=== PATIENT | male | born 1955 | race African-American/Black ===

== ENCOUNTER 2017-09-09 01:47 | Inpatient (IN) ==
[2017-09-09] MEDS ORDERED: ACETAMINOPHEN 325 MG TABLET PO PRN (02:55)
[2017-09-09] MEDS ORDERED: DOCUSATE SODIUM 100 MG CAPSULE PO PRN (02:55)
[2017-09-09] MEDS ORDERED: ALBUTEROL SULFATE 2.5 MG/3 ML NEBULIZER NEB PRN (02:55)
[2017-09-09] MEDS ORDERED: ONDANSETRON 4 MG/2 ML VIAL IV PRN (02:55)
[2017-09-09] MEDS ORDERED: NALOXONE HCL 0.4 MG/ML VIAL IV PRN (02:55)
--- NOTE | 2017-09-09 03:24 | Internal Med History&Physical ---
Medical - H&P: HPI Patient information: Note initiated : 09/09/17 at 3:17 am Patient: Yony Dangelo 62 y/o M admitted on 09/09/17 for hyperkalemia. History of present illness: Mr. Dangelo is a 62 year old man with end-stage renal disease. He reportedly missed his dialysis treatment yesterday, as he did not feel well enough to go. He developed abrupt onset of shortness of breath when he got up to use the restroom earlier this evening. He presented to [facility] emergency room. He was found to be severely hyperkalemic. Nephrology recommended that the patient be transferred here and have stat hemodialysis. Patient was given IV calcium chloride, IV sodium bicarb, IV D50, 10 units of IV insulin, IV Zofran at [facility]. The patient reports he was not feeling very well yesterday morning, and was just generally a little nauseated had a mild headache, felt somewhat weak. He had noticed his feet and lower leg swelling more than usual over the last couple of days. Because he did not feel well, he decided to skip dialysis. He also says that he felt like his glands in his neck might of been a little bit swollen. Over the course of yesterday, he did note a couple of episodes of feeling mildly short of breath. Then last night he awakened with acute onset of severe shortness of breath. He presented to [facility] emergency room, as noted above. Otherwise, he denies recent fever or chills, headaches or dizziness, new eye or ear symptoms, sore throat or cough. He denies chest pain or palpitations. He has had slight nausea but no vomiting. He says he did have a little bit of crampy abdominal pain after taking a laxative, but otherwise no diarrhea or constipation. He says he makes minimal urine, and that has not changed. He was diagnosed with a pulmonary embolism in the spring of this year, and started on Coumadin. He then fell and hit his head in the bathroom, and developed a subdural hematoma. Coumadin was held for a few weeks, and then resumed. Past medical history: End-stage renal disease, on dialysis DVT Hypertension Carotid artery disease Seizure disorder? Osteoporosis? History of subdural hematoma Pericardial effusion Past surgical history: AV fistula, carotid artery stents, splenectomy Medications: (Unconfirmed) Protonix 40 mg daily Aspirin 81 mg every morning Coreg 12.5 mg, 2 tabs twice daily Dilaudid 4 mg every 4 hours as needed Warfarin 5 mg nightly (Discontinued: Lovenox 80 mg subcu daily) Dilaudid 4 mg every 4 hours as needed B complex/Nephro-Trina 1 every morning Cinacalcet 90 mg every morning Renvela 800 mg 3 times daily Keppra 500 mg p.o. twice daily Prolia 60 mg subcu every 6 months Multitak 200 mg p.o. twice daily (Amlodipine?, Clonidine?) Allergies: Iodine causes itching Lisinopril causes tongue swelling Methadone causes rash and itching Family history: Mother had breast cancer, Sister had a stroke at age 21 and history of lupus, and also had ovarian cancer..Father had a pacemaker at age 95 , and at age 101. Social history: The patient says he smoked for about 30 years, and quit around age 57. He does not use alcohol or drugs. He currently lives with a friend. He says most of his family live in [place]. Medical - H&P: Meds Home Medications Medication Instructions Recorded Confirmed Type Carvedilol [Coreg] 12.5 mg PO BIDCC 04/11/17 04/11/17 History Ondansetron HCl [Zofran ODT] 4 mg SL Q4-6HP PRN #14 tablet 04/11/17 Rx amLODIPine [Norvasc] 10 mg PO DAILY 04/11/17 04/11/17 History cloNIDine HCL [Catapres] 0.2 mg PO BID 04/11/17 04/11/17 History cloNIDine [Catapres-Tts 1] 1 patch TOPICAL WEEKLY 04/11/17 04/11/17 History HYDROmorphone HCL [Dilaudid] 4 mg PO QIDP PRN 09/09/17 09/09/17 History HYDROmorphone HCL [Hydromorphone 2 mg PO BIDP PRN 09/09/17 09/09/17 History HCl] Multaq 400 mg PO BID 09/09/17 09/09/17 History Allergies Allergy/AdvReac Type Severity Reaction Status Date / Time Methadone Allergy Unknown Verified 10/04/15 15:38 Medical - H&P: Exam - Constitutional Vitals: Temp Resp BP Pulse Ox 97.4 F 18 187/89 100 09/09/17 02:54 09/09/17 02:54 09/09/17 02:54 09/09/17 02:54 On exam, he is a well-developed well-nourished -[place] man, in no acute distress. Head: Normocephalic, atraumatic. eyes: PERRLA, EOMI, anicteric. Ears: TMs and canals are clear. Pharynx: Pharynx is clear. Teeth are in good repair. Neck: He appears to have soft bilateral carotid bruits. Jugular veins appear distended to the jaw. No lymphadenopathy or thyromegaly is noted. Neck appears supple. Cardiac exam: Shows regular rate and rhythm with normal S1 and S2. He has a 2/ 6 systolic ejection murmur heard loudest along the left lower sternal border. No rubs or gallops are noted. Lungs: He has soft crackles noted about one third up from the bases, posteriorly. No definite wheezes or rhonchi are noted. He has no accessory muscle use. Next line abdomen: Soft and nontender, without obvious masses. Bowel sounds are normoactive. Extremities: He has about 2+ pitting edema to about mid garsia bilaterally. Pulses are intact. He has fistulas with thrills in both arms. Neurologic: Patient is alert and oriented, calm and cooperative. He seems to lack insight into his medical condition. Motor exam is grossly nonfocal. Medical - H&P: Reslt - Labs CBC & Chem 7: 09/09/17 11:20 09/09/17 07:09 Labs: September 09: CBC: White blood cell count 6000, hemoglobin 14, hematocrit 46, platelets 263, 000. Differential shows 700 lymphocytes. Pro time is 18, INR 1.5 Chemistry panel: Sodium 141, potassium 3.6, chloride 95, CO2 28, anion gap 18, BUN 58, creatinine 6.0, glucose 61 Alkaline phosphatase is 125 Nasal MRSA screen is negative. September 09: Labs from [facility]: Chemistry panel: Sodium 135, potassium 7.9, chloride 88, bicarb 21, anion gap 26 , BUN 138, creatinine 11.7, glucose 82 Calcium 10.1 ProBNP 44,321 next CBC: White blood cell count 5000, hemoglobin 14, hematocrit 46, MCV 90, RDW 23, platelets 244,000. Differential: 12% lymphocytes, 17% monocytes EKG: Shows normal sinus rhythm at a rate of 68, first-degree AV block, left atrial enlargement, left axis deviation, likely septal infarct, slightly peaked T waves inferiorly and laterally Medical - H&P: A/P (1) End stage renal disease with hypertension Current visit: Yes Status: Chronic (2) DVT (deep venous thrombosis) Current visit: Yes Status: Chronic (3) Carotid artery disease Current visit: No Status: Chronic (4) Seizure disorder Current visit: No Status: Chronic (5) Osteoporosis Current visit: No Status: Chronic (6) History of subdural hematoma Current visit: No Status: Chronic - Narrative A/P Narrative: #1. Cardiopulmonary. This patient with end-stage renal disease missed his dialysis treatment yesterday. He presents today with acute shortness of breath, likely due to volume overload. -Patient was admitted around 3 AM, and had urgent dialysis done. This morning he is feeling much less short of breath, though he still has an abnormal lung exam. He admits that he was eating salty food a day or 2 ago. He has not been weighing every day, and is encouraged to do this. I touch base with Dr. Pettit, and he will see him again this afternoon, and then we will decide whether the patient should be discharged, or will need more fluid management. -Check follow-up EKG and troponin. 2. Renal. End-stage renal disease. Dialysis. Severe electrolyte abnormalities, including hyperkalemia, uremia. Dialysis. 3. CODE STATUS: Full code. 4. DVT prophylaxis: Warfarin. Recent history of DVT ? : Coumadin management per pharmacy. 5. Vascular disease-carotid artery disease. #6. Pulmonary. Patient reportedly was diagnosed with pulmonary embolism earlier this year, and is currently maintained on Coumadin. We will continue the Coumadin, and have him follow-up with his primary care doctor to decide how long he should stay on that. Approximately 60 minutes was spent, reviewing the patient's records from [facility], interviewing and examining him, touching base with staff and Dr. Pettit , and writing orders.
[2017-09-09] MEDS: PANTOPRAZOLE 40 MG VIAL IV SCH (07:16)
[2017-09-09 08:21] LABS: ALT/SGPT 18 U/l (0-40); Albumin 3.7 gm/dL (3.2-5.2); Albumin/Globulin Ratio 0.9 (1.0-2.3); Alkaline Phosphatase 125 U/L (39-117); Blood Urea Nitrogen 58 mg/dl (6-20)
[2017-09-09] MEDS: ASPIRIN 81 MG TAB.CHEW PO SCH (08:43)
[2017-09-09] MEDS: VITAMIN B COMPLEX 1 CAPSULE PO SCH (08:44)
[2017-09-09] MEDS: HEPARIN 5,000 UNIT/ML VIAL SQ SCH ×2 (08:44→20:54)
[2017-09-09] MEDS: SEVELAMER 800 MG TABLET PO SCH ×3 (08:44→17:56)
[2017-09-09] MEDS: CINACALCET 30 MG TABLET PO SCH (08:44)
[2017-09-09] MEDS: levETIRAcetam 500 MG TABLET PO SCH ×2 (08:44→20:54)
[2017-09-09] MEDS ORDERED: METOPROLOL TARTRATE 5 MG/5 ML VIAL IV ONE (10:48)
[2017-09-09] MEDS ORDERED: HYDROMORPHONE HCL 4 MG PO PRN (10:51)
[2017-09-09] MEDS ORDERED: METOPROLOL TARTRATE 5 MG/5 ML VIAL IV PRN (10:54)
[2017-09-09] MEDS: CARVEDILOL 12.5 MG TABLET PO SCH ×3 (11:14→17:59)
[2017-09-09 11:53] LABS: Basophils # (Auto) 0 K/mcL (0.0-0.3); Basophils % (Auto) 0.8 % (0.0-2.0); Eosinophils # (Auto) 0.1 K/mcL (0.0-0.7); Eosinophils % (Auto) 1.2 % (0.0-7.0); Granulocytes % (Auto) 72.8 % (38.0-78.0); Lymphocytes # (Auto) 0.7 K/mcL (1.5-4.8); Lymphocytes % (Auto) 11.6 % (15.5-49.0); Mean Cell Volume 90.2 fL (80.0-100.0); Mean Corpuscular Hemoglobin 28.8 pg (26.0-34.0); Monocytes # (Auto) 0.8 K/mcL (0.1-0.9); Monocytes % (Auto) 13.6 % (1.0-12.0); Platelet Count 263 K/mcL (140-440); RBC 5.11 M/mcL (4.50-5.90); Red Cell Distribution Width 23.3 % (11.5-14.5)
--- NOTE | 2017-09-09 15:10 | Consultation ---
DATE OF CONSULTATION: 09/09/2017 REFERRING PHYSICIAN: Christine Lorenzo M.D. REASON FOR CONSULTATION: Hyperkalemia. HISTORY OF PRESENT ILLNESS: The patient is a 62-year-old gentleman with past medical history significant for end-stage renal disease on hemodialysis. He dialyzes three days a week on Mondays, Wednesdays, and Fridays. He missed his dialysis treatment on Thursday because he did not feel like going. He came into the emergency room at [facility] and in the process of evaluation was found to have a potassium of 7.8. He was given IV calcium, bicarbonate, D50 and 10 units of insulin. Because of the 7.8 potassium, he was transferred to [facility] to initiate hemodialysis. He feels tired and he is short of breath. His shortness of breath started somewhat abruptly. He has been otherwise stable. PAST MEDICAL HISTORY: Significant for: 1. End-stage renal disease on hemodialysis. 2. History of recent DVT in his neck veins. 3. Hypertension. 4. Carotid artery disease. 5. Seizures. 6. Secondary hyperparathyroidism. 7. History of subdural hematoma. 8. History pericardial effusion. PAST SURGICAL HISTORY: 1. AV fistula surgeries. 2. Carotid artery stents. 3. Subdural hematoma extraction. MEDICATIONS ON ADMISSION: 1. Protonix 40 mg daily. 2. Aspirin 81 mg daily. 3. Carvedilol 12.5 mg two tablets twice daily. 4. Dilaudid 4 mg as needed. 5. Coumadin 5 mg daily. 6. Lovenox 80 mg subq daily. 7. ?? one tablet once daily. 8. Sensipar 90 mg daily. 9. Renvela 800 mg three tablets daily. 10. Keppra 500 mg twice daily. 11. Prolia 60 mg subq every 6 months. 12. Multaq 200 mg p.o. twice daily. ALLERGIES: 1. IODINE which causes itching. 2. LISINOPRIL causes tongue swelling. 3. METHADONE causes rash and itching. FAMILY HISTORY: Mother had breast cancer, ovarian cancer. Sister had a stroke at the age of 21 and a history of lupus. Father had a pacemaker at the age of 95. His father recently. SOCIAL HISTORY: He is a previous smoker, quit in 2013. No history of alcohol use. REVIEW OF SYSTEMS: Ten systems were reviewed and are as indicated in history of present illness. PHYSICAL EXAMINATION: GENERAL: Alert, oriented x3. He is not in any distress. VITAL SIGNS: Blood pressure is 187/89 with a pulse rate of 90, pulse oximetry of 100%, respiratory rate of 18, temperature 97.4. HEENT: NC/AT. PERRLA. EOMI. No pallor, no cyanosis, and no icterus. Fundus examination is not performed. External ear and tympanic membrane appears normal. Oral cavity appears normal with normal mucosa. NECK: Supple. No jugular venous distention. No lymphadenopathy. No thyromegaly. No carotid bruits. LUNGS: Decreased air entry bilaterally. No rales or rhonchi heard. CARDIAC: S1 and S2 heard. No S3, S4. No murmurs. No rubs. ABDOMEN: Soft, nontender. No organomegaly. Positive bowel sounds. No mass. No rebound. EXTREMITIES: Did not show any evidence of edema. LABORATORY DATA: From [facility] showed a potassium of 7.8. ASSESSMENT AND PLAN: 1. Hyperkalemia secondary to missed dialysis. He was started on hemodialysis last night and received a zero potassium bath for one hour and then subsequently one potassium bath. His potassium this morning is adequate at 3.6. 2. Hypertension because of the volume excess. He has not been very compliant with dialysis. 3. Anticoagulation. His INR is 1.5. 4. I will continue to follow him in the hospitalization. Loi Job ID: [id number] Doc ID: [id number] Mason AMAYA
[2017-09-09] MEDS ORDERED: CARVEDILOL 12.5 MG TABLET PO SCH (17:30)
--- NOTE | 2017-09-09 17:53 | Cat Scan Report ---
CLINICAL INFORMATION: COMPARISON: 01/02/2017 TECHNIQUE: 2.5 mm helical slices were obtained in the skull base to vertex. Following reconstruction, axial reformatted images were reviewed at bone and parenchymal windows. FINDINGS: The ventricles, sulci, fissures, and cisterns are symmetrically enlarged compatible with mild atrophy. Prior right frontal craniotomy changes are noted evacuated right subdural hematoma. Is no evidence of recurrent or residual subdural hematoma. No extra-axial fluid collection or mass appreciated. Minimal chronic ischemic changes in the deep cerebral white matter. Is no intracerebral hemorrhage, mass effect or edema. There is a potential poorly visualized similar mass in the hypothalamic region. 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 IMPRESSION: No hemorrhage, edema or other acute intracerebral finding Mild atrophy and chronic ischemic changes in the cerebral white matter. Right frontal craniotomy changes to evacuate a right frontal subdural hematoma. 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 Suggest brain MRI with gadolinium for further evaluation Interpreted and Authenticated by: Randell Hercules 09/09/17
[2017-09-09] MEDS: HYDROmorphone 2 MG TABLET PO PRN ×2 (17:55→21:01)
[2017-09-09] MEDS: WARFARIN 5 MG TABLET PO SCH (17:55)
[2017-09-09] MEDS: DRONEDARONE 400 MG PO SCH (20:55)
[2017-09-10] MEDS: DRONEDARONE 400 MG PO SCH ×2 (07:18→13:47)
[2017-09-10 07:30] LABS: Basophils # (Auto) 0 K/mcL (0.0-0.3); Basophils % (Auto) 0 % (0.0-2.0); Eosinophils # (Auto) 0.1 K/mcL (0.0-0.7); Eosinophils % (Auto) 1.2 % (0.0-7.0); Granulocytes % (Auto) 69.5 % (38.0-78.0); Lymphocytes # (Auto) 0.8 K/mcL (1.5-4.8); Lymphocytes % (Auto) 14.7 % (15.5-49.0); Mean Cell Volume 91.6 fL (80.0-100.0); Mean Corpuscular HGB Conc 32.1 g/dL (31.0-36.0); Mean Corpuscular Hemoglobin 29.4 pg (26.0-34.0); Monocytes # (Auto) 0.8 K/mcL (0.1-0.9); Monocytes % (Auto) 14.6 % (1.0-12.0); Platelet Count 241 K/mcL (140-440); RBC 4.39 M/mcL (4.50-5.90); Red Cell Distribution Width 22.8 % (11.5-14.5)
[2017-09-10] MEDS: SEVELAMER 800 MG TABLET PO SCH ×2 (07:30→12:03)
[2017-09-10] MEDS: PANTOPRAZOLE 40 MG VIAL IV SCH (07:30)
[2017-09-10] MEDS: HYDROmorphone 2 MG TABLET PO PRN ×2 (07:49→13:47)
[2017-09-10 08:33] LABS: ALT/SGPT 16 U/l (0-40); Albumin/Globulin Ratio 0.8 (1.0-2.3); Alkaline Phosphatase 103 U/L (39-117); Blood Urea Nitrogen 86 mg/dl (6-20)
[2017-09-10] MEDS ORDERED: METOPROLOL TARTRATE 5 MG/5 ML VIAL IV ONE (08:36)
[2017-09-10] MEDS ORDERED: FLU VACC QS2017-18 36MOS UP/PF 60 MCG/0.5 ML SYRINGE IM ONE (10:00)
--- NOTE | 2017-09-10 10:21 | Discharge Summary ---
Medical - DS: Prov Patient information: Note initiated : 09/10/17 at 10:21 am Service Date, if different from initiated Date: [] Patient: Yony Dangelo 62 y/o M admitted on 09/09/17 for Hyperkalemia. Chief Complaint: [] Date of admission: 09/09/17 02:46 Discharge date: 09/10/17 Primary care physician: Mason Pettit, boat designer [facility]. PCP. Admitting clinician: Christine Rubio Consults: Dr. Pettit, nephrology. Attending physician on discharge: Christine Rubio Medical - DS: Meds - Discharge Medications Prescriptions: Gabapentin [Neurontin] 100 mg PO HS #30 cap Active and Home Medications: Discharge medications: Gabapentin 100 mg p.o. nightly, for foot neuropathy pain Aspirin 81 mg daily Coreg 12.5 mg twice daily Cinacalcet 90 mg daily Dilaudid 2 mg and 4 mg p.o. every 4 hours as needed Keppra 500 mg p.o. twice daily Multaq 400 mg p.o. twice daily Zofran ODT 4 mg sublingual every 4 hours as needed Protonix 40 mg every morning Renvela 800 mg p.o. 3 times daily with meals Nephro-Trina 1 tab daily Warfarin 5 mg nightly Tylenol 650 mg every 6 hours as needed Coumadin level is low here, with INR of only 1.5. Please take 10 mg of Coumadin tonight, and recheck pro time tomorrow, with results to Dr. Pettit. Previous home Medications: Carvedilol [Coreg] 12.5 mg PO BIDCC 04/11/17 [History Confirmed 09/10/17 Last Taken Unknown] Ondansetron HCl [Zofran ODT] 4 mg SL Q4-6HP PRN #14 tablet 04/11/17 [Rx Confirmed 09/10/17 Last Taken Unknown] HYDROmorphone HCL [Hydromorphone HCl] 2 mg PO BIDP PRN 09/09/17 [History Confirmed 09/09/17 Last Taken Unknown] Multaq 400 mg PO BID 09/09/17 [History Confirmed 09/09/17 Last Taken Unknown] Aspirin [Luisa Chewable Aspirin] 81 mg PO DAILY 09/10/17 [History Confirmed 11/15 Last Taken Unknown] Cinacalcet HCl [Sensipar] 90 mg PO DAILY 09/10/17 [History Confirmed 09/10/17 Last Taken Unknown] HYDROmorphone HCL [Dilaudid] 4 mg PO Q4HP PRN 09/10/17 [History Confirmed Last Taken Unknown] Pantoprazole [Protonix] 40 mg PO QAMAC 09/10/17 [History Confirmed 09/10/17 Last Taken Unknown] Sevelamer [Renvela] 800 mg PO TIDCC 09/10/17 [History Confirmed 09/10/17 Last Taken Unknown] Vit B Cmplx 3/FA/Vit C/Biotin [Nephro-Trina Rx Tablet] 1 each PO DAILY 09/10/17 [ History Confirmed 09/10/17 Last Taken Unknown] Warfarin [Coumadin] 5 mg PO HS 09/10/17 [History Confirmed 09/10/17 Last Taken Unknown] levETIRAcetam [Keppra] 500 mg PO BID 09/10/17 [History Confirmed 09/10/17 Last Taken Unknown] Medical - DS: Hosp Hospital course: Mr. Dangelo is a 62 year old M September 09, 2017: History of present illness: Mr. Dangelo is a 62 year old man with end-stage renal disease. He reportedly missed his dialysis treatment yesterday, as he did not feel well enough to go. He developed abrupt onset of shortness of breath when he got up to use the restroom earlier this evening. He presented to [facility] emergency room. He was found to be severely hyperkalemic. Nephrology recommended that the patient be transferred here and have stat hemodialysis. Patient was given IV calcium chloride, IV sodium bicarb, IV D50, 10 units of IV insulin, IV Zofran at [facility]. The patient reports he was not feeling very well yesterday morning, and was just generally a little nauseated had a mild headache, felt somewhat weak. He had noticed his feet and lower leg swelling more than usual over the last couple of days. Because he did not feel well, he decided to skip dialysis. He also says that he felt like his glands in his neck might of been a little bit swollen. Over the course of yesterday, he did note a couple of episodes of feeling mildly short of breath. Then last night he awakened with acute onset of severe shortness of breath. He presented to [facility] emergency room, as noted above. Otherwise, he denies recent fever or chills, headaches or dizziness, new eye or ear symptoms, sore throat or cough. He denies chest pain or palpitations. He has had slight nausea but no vomiting. He says he did have a little bit of crampy abdominal pain after taking a laxative, but otherwise no diarrhea or constipation. He says he makes minimal urine, and that has not changed. He was diagnosed with a pulmonary embolism in the spring of this year, and started on Coumadin. He then fell and hit his head in the bathroom, and developed a subdural hematoma. Coumadin was held for a few weeks, and then resumed. September 10: Hospital course: Patient was admitted to the ICU, and received acute dialysis for acute and severe CHF with hypoxia/respiratory failure. He felt quite a bit better yesterday morning after dialysis, but lungs still sounded wet, and he still had peripheral edema. His heart rates also were a bit variable, dropping into the 60s and then jumping up to the 130s. He was monitored on telemetry overnight. He is undergoing repeat dialysis this morning, to pull more fluid off, and then will likely be stable for discharge. Patient has severe hyperkalemia on admission, which resolved yesterday. Potassium was back up this morning, but should be better after dialysis. Today, he is complaining of a tingling and burning pain in his feet. Otherwise, he denies fever chills, chest pain or palpitations, shortness of breath, GI or problems On exam, he is awake and alert, in no acute distress. Temperature 97.8 heart rate varies from 68-130, currently 110. Blood pressure 137-150/93-100. O2 saturation 95% on room air. Neck is supple. Cardiac exam shows regular rate and rhythm. Lungs: He still has some crackles at the bases, but the remainder of the lung cordova are clear. Abdomen is soft and nontender. Extremities: He still has significant, at least 2+, pitting edema in the left lower extremity. Edema of the right lower extremity has mostly resolved Neurologic exam: Is grossly nonfocal. Assessment and plan: #1. Cardiopulmonary. This patient with end-stage renal disease missed his dialysis treatment yesterday. He presents today with acute shortness of breath, likely due to volume overload. The patient was admitted for urgent dialysis. He is much improved after dialysis. It would appear that he is not entirely compliant with a low-salt diet, nor with his dialysis schedule. He will have repeat dialysis today, and afterwards will likely be discharged home. 2. Renal. End-stage renal disease. Dialysis. Severe electrolyte abnormalities, including hyperkalemia, uremia. Dialysis. Management per Dr. Pettit. 3. CODE STATUS: Full code. 4. DVT prophylaxis: Warfarin. 5. Vascular disease-carotid artery disease. #6. Pulmonary. Patient reportedly was diagnosed with pulmonary embolism earlier this year, and is currently maintained on Coumadin. INR is still subtherapeutic today. Coumadin dose needs to be increased. I will give him a dose of Lovenox today to protect him until Coumadin is therapeutic. -Recheck INR in the morning. Patient will report to the anticoagulation clinic tomorrow, with results forwarded to Dr. Cruz. 7. Neurologic. Patient complains of foot discomfort, and symptoms are consistent with neuropathy. I touched base with Dr. Pettit, and we will start him on gabapentin 100 mg p.o. nightly. -Dr. Pettit ordered a head CT. There is no evidence of recurrent subdural hematoma. 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 Radiology suggests follow-up brain MRI. Dr. Pettit says he will follow-up on this. Discharge diagnosis: Acute CHF, volume overload, due to missed dialysis. - Time Spent with Patient Total time spent providing and/or coordinating discharge services: Greater than 30 minutes Medical - DS: Exam - Constitutional Vitals: Vital Signs Temp Pulse Pulse Resp BP BP Pulse Ox 09/10/17 07:52 97.8 F 120 H 19 137/79 95 09/10/17 07:12 92 09/10/17 04:01 124/75 09/10/17 00:19 138/71 09/09/17 23:01 142/82 09/09/17 22:01 157/80 09/09/17 21:01 69 159/83 91 09/09/17 20:53 159/79 09/09/17 20:00 97.0 F 68 18 159/79 90 09/09/17 17:01 167/83 09/09/17 16:01 167/92 09/09/17 16:00 98.4 F 70 20 167/92 95 09/09/17 15:01 173/89 09/09/17 14:00 184/95 09/09/17 13:31 76 16 155/78 09/09/17 13:14 155/78 09/09/17 13:00 207/119 09/09/17 12:00 98.6 F 130 H 20 189/124 189/124 94 09/09/17 11:33 178/92 09/09/17 11:00 185/83 09/09/17 10:53 164/86 Intake and Output 09/09/17 09/10/17 09/10/17 21:59 05:59 13:59 Intake Total 440 / 440 240 / 240 Balance 440 / 440 240 / 240 Intake: Oral 440 / 440 240 / 240 Other: Meal Dinner Percent of Meal Consumed 100% Feeding Ability Assist with Tray Set Up Weight 176 lb 4.8 oz Medical - DS: Data Labs on day of discharge: Labs from last 24 hours 09/10/17 09/10/17 09/10/17 04:15 04:15 04:15 WBC 5.5 RBC 4.39 L Hgb 12.9 L Hct 40.2 L MCV 91.6 MCH 29.4 MCHC 32.1 RDW 22.8 H Plt Count 241 MPV 9.1 Gran % 69.5 Lymph % (Auto) 14.7 L [place] % (Auto) 14.6 H Eos % (Auto) 1.2 Baso % (Auto) 0 Gran # 3.8 Lymph # (Auto) 0.8 L [place] # (Auto) 0.8 Eos # (Auto) 0.1 Baso # (Auto) 0 Differential Comment PT 18.6 H INR 1.5 H Sodium 140 Potassium 5.6 H Chloride 92 L Carbon Dioxide 27 Anion Gap 21.0 H BUN 86 H Creatinine 9.7 H* GFR Calculation 5 Glucose 86 Calcium 8.6 Total Bilirubin 0.4 AST 15 ALT 16 Alkaline Phosphatase 103 Total Protein 6.8 Albumin 3.0 L Globulin 3.8 H Albumin/Globulin Ratio 0.8 L 09/09/17 11:20 WBC 6.0 RBC 5.11 Hgb 14.7 Hct 46.1 MCV 90.2 MCH 28.8 MCHC 32.0 RDW 23.3 H Plt Count 263 MPV 9.1 Gran % 72.8 Lymph % (Auto) 11.6 L [place] % (Auto) 13.6 H Eos % (Auto) 1.2 Baso % (Auto) 0.8 Gran # 4.4 Lymph # (Auto) 0.7 L [place] # (Auto) 0.8 Eos # (Auto) 0.1 Baso # (Auto) 0 Differential Comment Few nrbcs on scan PT INR Sodium Potassium Chloride Carbon Dioxide Anion Gap BUN Creatinine GFR Calculation Glucose Calcium Total Bilirubin AST ALT Alkaline Phosphatase Total Protein Albumin Globulin Albumin/Globulin Ratio September 09: Head CT: 10 mm mass in the region of the hypothalamus/[facility]. Suggest brain MRI with gadolinium for further evaluation. Evidence of previous right frontal craniotomy to evacuate right frontal subdural. No evidence of recurrent subdural. CBC: White blood cell count 6000, hemoglobin 14, hematocrit 46, platelets 263, 000. Differential shows 700 lymphocytes. Pro time is 18, INR 1.5 Chemistry panel: Sodium 141, potassium 3.6, chloride 95, CO2 28, anion gap 18, BUN 58, creatinine 6.0, glucose 61 Alkaline phosphatase is 125 Nasal MRSA screen is negative. September 09: Labs from [facility]: Chemistry panel: Sodium 135, potassium 7.9, chloride 88, bicarb 21, anion gap 26 , BUN 138, creatinine 11.7, glucose 82 Calcium 10.1 ProBNP 44,321 CBC: White blood cell count 5000, hemoglobin 14, hematocrit 46, MCV 90, RDW 23, platelets 244,000. Differential: 12% lymphocytes, 17% monocytes EKG: Shows normal sinus rhythm at a rate of 68, first-degree AV block, left atrial enlargement, left axis deviation, likely septal infarct, slightly peaked T waves inferiorly and laterally Medical - DS: A/P - Patient/Caregiver Discharge Instructions Activity: increase activity as tolerated Diet: Renal Additional Instructions: 1. Heart failure, acute volume overload. -You ended up with fluid in your lungs because you missed dialysis, and also probably because he had too much salt in your diet. Please weigh yourself daily and let your doctor know if you gain more than a pound or 2 in 1 day. Please do not miss any more dialysis appointments. 2. Your Coumadin level was low here. -Please take 10 mg of Coumadin tonight, instead of 5 mg. -Please recheck your pro time/INR tomorrow, with results to Dr. Pettit or Fara Cruz. 3. You are experiencing foot pain, which we think is a neuropathy. -Dr. Pettit suggested we try gabapentin 100 mg at bedtime. 4. You had a follow-up brain scan. This does not show any more bleeding. -However, there is a small spot deep in your brain, which might require further evaluation. You can follow-up with Dr. Pettit for this or Dr. Cruz. Discharge medications: Gabapentin 100 mg p.o. nightly, for foot neuropathy pain Aspirin 81 mg daily Coreg 12.5 mg twice daily Cinacalcet 90 mg daily Dilaudid 2 mg and 4 mg p.o. every 4 hours as needed Keppra 500 mg p.o. twice daily Multaq 400 mg p.o. twice daily if someone did not bring you this this morning, please take this as soon as you get home. Zofran ODT 4 mg sublingual every 4 hours as needed Protonix 40 mg every morning Renvela 800 mg p.o. 3 times daily with meals Nephro-Trina 1 tab daily Warfarin 5 mg nightly Tylenol 650 mg every 6 hours as needed Coumadin level is low here, with INR of only 1.5. Please take 10 mg of Coumadin tonight, and recheck pro time tomorrow, with results to Dr. Pettit. Prescriptions: Gabapentin [Neurontin] 100 mg PO HS #30 cap Other Amb Orders: Prothrombin Time INR Time Frame: 1 Day, Location: Determined By Patient - Problem Maintenance (1) End stage renal disease with hypertension Status: Chronic (2) DVT (deep venous thrombosis) Status: Chronic (3) Carotid artery disease Status: Chronic (4) Seizure disorder Status: Chronic (5) Osteoporosis Status: Chronic (6) History of subdural hematoma Status: Chronic - Follow up Plan Follow up with: Erika Cruz ARNP [Nurse Practitioner] - 09/18/17 2:30 pm Disposition: Home, Self-Care Prognosis: Good Rehab Potential: Good Overall status at discharge: patient is progressing back to baseline Medical - DS: Qual - VTE Deep Vein Thrombosis/Pulmonary Embolism Present on Admission: No
[2017-09-10] MEDS ORDERED: ENOXAPARIN 80 MG/0.8 ML SYRINGE SQ ONE (10:58)
[2017-09-10] MEDS: HEPARIN 5,000 UNIT/ML VIAL SQ SCH (13:46)
[2017-09-10] MEDS: CARVEDILOL 12.5 MG TABLET PO SCH (13:47)
[2017-09-10] MEDS: WARFARIN 5 MG TABLET PO SCH (13:47)
[2017-09-10] MEDS: ASPIRIN 81 MG TAB.CHEW PO SCH (13:47)
[2017-09-10] MEDS: CINACALCET 30 MG TABLET PO SCH (14:03)
[2017-09-10] MEDS: VITAMIN B COMPLEX 1 CAPSULE PO SCH (14:03)
[2017-09-10] MEDS: levETIRAcetam 500 MG TABLET PO SCH (14:03)
--- NOTE | 2017-09-10 16:53 | Nephrology Progress Note ---
Subjective Patient information: Note initiated : 09/10/17 at 4:50 pm Service Date, if different from initiated Date: [] Patient: Yony Dangelo 62 y/o M admitted on 09/09/17 for Hyperkalemia. Chief Complaint: Headache is better. BP better. Breathing much improved. Objective - Vital Signs Vital signs: Vital Signs Temp Pulse Pulse Resp BP BP Pulse Ox 09/10/17 15:20 97.4 F 72 18 141/68 96 09/10/17 13:44 97.4 F 75 154/87 09/10/17 13:10 73 158/92 09/10/17 12:38 69 172/85 09/10/17 12:11 97.8 F 72 154/85 09/10/17 12:00 97.6 F 75 20 146/76 95 09/10/17 11:49 75 146/76 09/10/17 11:13 69 152/90 09/10/17 10:45 110 H 137/100 09/10/17 09:42 109 H 150/93 09/10/17 08:00 120 H 18 95 09/10/17 07:52 97.8 F 120 H 19 137/79 95 09/10/17 07:12 92 09/10/17 04:01 124/75 09/10/17 00:19 138/71 09/09/17 23:01 142/82 09/09/17 22:01 157/80 09/09/17 21:01 69 159/83 91 09/09/17 20:53 159/79 09/09/17 20:00 97.0 F 68 18 159/79 90 09/09/17 17:01 167/83 Intake and Output 09/10/17 09/10/17 09/10/17 05:59 13:59 21:59 Intake Total 240 / 240 120 / 120 Output Total 4400 / 4400 Balance 240 / 240 -4280 / -4280 Intake: Oral 240 / 240 120 / 120 Output: Hemodialysis UF 4400 / 4400 Other: Meal Breakfast Percent of Meal Consumed 100% Feeding Ability Assist with Tray Set Up Intake & Output: Intake & Output 09/10/17 09/10/17 09/10/17 05:59 13:59 21:59 Intake Total 240 / 240 120 / 120 Output Total 4400 / 4400 Balance 240 / 240 -4280 / -4280 Intake: Oral 240 / 240 120 / 120 Output: Hemodialysis UF 4400 / 4400 Other: Meal Breakfast Percent of Meal Consumed 100% Feeding Ability Assist with Tray Set Up - General Appearance General appearance: cachectic EENT: ATNC Neck: no JVD Respiratory: no kyphosis Cardiology: holosystolic murmur Gastrointestinal: normoactive bowel sounds Neurologic: no focal deficit - Lab 09/10/17 04:15 09/10/17 04:15 Most recent lab results Calcium 8.6 mg/dl (8.6-10.4) 09/10/17 04:15 Assessment and Plan (1) End stage renal disease with hypertension Status: Chronic Comment: 1. Had his dialysis today. Tolerated well. He will go to his outpatient dialysis tomorrow. 2. HTN better. 3. Lesion in the hypothalamus. Will have follow with Dr. Lane.
[2017-09-10] MEDS ORDERED: GABAPENTIN 100 MG CAPSULE PO SCH (21:00)
== END 2017-09-10 15:20 | disposition home or self-care (01) | DRG 640 ==
LOC: ICU 02:46
PROVIDERS: ADMIT Internal Medicine; ATTEND Internal Medicine